=== PATIENT | female | born 1980 | race Caucasian/White ===

== ENCOUNTER 2016-10-22 19:49 | Emergency (ER) | payer OTHER ==
[~2016-10-22] VITALS: Ht 162.6 cm; Wt 47.0 kg
[2016-10-22 19:51] VITALS: Ht 162.6 cm; Wt 47.0 kg
[2016-10-22] MEDS ORDERED: HC30CR25 TOP (20:53)
[2016-10-22] MEDS ORDERED: KETO120S2 TOP (20:53)
--- NOTE | 2016-10-22 21:01 | ERA ---
ER Documentation Chief Complaint Date/Time DATE: 10/22/16 TIME: 20:56 Chief Complaint itchy finger nails x 1 week HPI This is a 36-year-old female presenting with a chief complaint of itching on the dorsal distal finger tips. Patient denies any fever, openings, visualization of notes, imaging other areas of the body. Patient also complains of greasy, yellow shedding areas behind the ears bilaterally without pruritus. Patient has no other symptoms at this time. Patient denies sexual activity, history of psychological disorders. Patient has been seen by PCP without any diagnosis or treatment given. ROS All systems reviewed and are negative except as per history of present illness. Medications Home Meds Active Scripts Hydrocortisone* Topical (Hydrocortisone* Topical) 2.5%-28.3 Gm Cream..g., 1 APPLIC TOP BID, #1 TUB Prov:LEO MONTAÑO PA-C 10/22/16 Ketoconazole* (Ketoconazole*) 2% - 120 Ml Shampoo, 1 APPLIC TOP DAILY for 28 Days, EA WASH HAIR/SCALP AND RINSE OFF Prov:LEO MONTAÑO PA-C 10/22/16 Allergies Allergies: Coded Allergies: No Known Allergy (Unverified , 10/22/16) PMhx/Soc History of Surgery: Yes (Ovarian Cyst removal.) Anesthesia Reaction: No Hx Neurological Disorder: No Hx Respiratory Disorders: No Hx Cardiac Disorders: No Hx Psychiatric Problems: No Hx Miscellaneous Medical Probl: No Hx Alcohol Use: Yes (socially.) Hx Substance Use: No Hx Tobacco Use: No Smoking Status: Never smoker Physical Exam Vitals Vital Signs Date Time Temp Pulse Resp B/P Pulse Ox O2 Delivery O2 Flow Rate FiO2 10/22/16 19:51 98.7 86 20 139/71 100 Physical Exam Const: Well-appearing well-developed well-nourished 36-year-old female. Head: Atraumatic Eyes: Normal Conjunctiva ENT: Normal External Ears, Nose and Mouth. Neck: Full range of motion..~ No meningismus. Resp: Clear to auscultation bilaterally Cardio: Regular rate and rhythm, no murmurs Abd: Soft, non tender, non distended. Normal bowel sounds Skin: Erythematous dorsal fingertips around the nail. No swelling, no discharge, no lichenification, no lesions. [place] yellow easily scraped off scales behind the ear most consistent with seborrheic dermatitis. Back: No midline or flank tenderness Ext: No cyanosis, or edema Neur: Awake and alert Psych: Normal Mood and Affect Procedures/MDM Patient presents with signs and symptoms most consistent with atopic dermatitis of the fingertips without finger nail findings. Patient also presents with signs and symptoms consistent with seborrheic dermatitis in the anterior auricular region. Patient will be discharged with antifungal for seborrheic dermatitis to apply topically 4 weeks as well as hydrocortisone to relieve the itching and the distal fingertips. Patient has been advised to follow-up with PCP. Departure Diagnosis: Primary Impression: Seborrheic dermatitis Condition: Stable Patient Instructions: Atopic Dermatitis (Eczema), Fungal Infection, Skin [ General] Additional Instructions: Follow up with your PCP within the next 1-3 days for a more thorough evaluation and a possible referral to a specialist. Return the the emergency department immediately if symptoms worsen or change. If you have any questions regarding medications, ask your pharmacist or us before you leave. If any adverse reactions occur while taking your medications, discontinue the treatment and return to the emergency department immediately. Take your medications as directed, and complete the entire course of treatment. LEO MONTAÑO PA-C October 22, 2016 21:01
== END 2016-10-22 21:45 | disposition home or self-care (01) ==
LOC: FTE 19:49
DX: L21.9 Seborrheic dermatitis, unspecified (principal)
CPT/HCPCS: 99283